=== PATIENT | female | born 1990 | race Caucasian/White ===

== ENCOUNTER 2020-04-27 01:32 | Emergency (ER) | payer MEDICAID, OTHER ==
[~2020-04-27] VITALS: Ht 157.5 cm; Wt 118.2 kg
[~2020-04-27 01:32] MED LIST: LITH600 PO; PARO10TA89 PO; TOPI200T PO; ZIPR80CA2 PO
[2020-04-27 02:31] LABS: COVID AG,FIA SOURCE NASAL SWAB
[2020-04-27 02:40] LABS: BASOPHILS % (AUTO) 0.3 % (0.0-2.0); EOSINOPHILS % (AUTO) 2.1 % (1.0-6.0); HEMATOCRIT 39.1 % (36-46); HEMOGLOBIN 12.1 g/dL (12.0-16.0); LYMPHOCYTES # (AUTO) 1.4 K/uL (1.0-4.8); LYMPHOCYTES % (AUTO) 11.2 % (22.0-44.0); MEAN CORPUSCULAR HEMOGLOBIN 24.5 pg (26.0-34.0); MEAN CORPUSCULAR VOLUME 79 fL (80-100); MONOCYTES # (AUTO) 0.3 K/uL (0.1-1.0); MONOCYTES % (AUTO) 2.8 % (2.0-9.0); NEUTROPHILS # (AUTO) 10.6 K/uL (1.8-7.7); NEUTROPHILS % (AUTO) 83.6 % (40.0-70.0); PLATELET COUNT (AUTO) 329 K/uL (150-450); RED BLOOD CELL COUNT(AUTO) 4.93 MIL/uL (4.00-5.20); RED CELL DISTRIBUTION WIDTH 25.4 % (11.5-14.5)
[2020-04-27 02:53] LABS: ANION GAP 6 mmol/L (8-16); CALCIUM, TOTAL 8.3 mg/dL (8.8-10.5); CARBON DIOXIDE 27 mmol/L (22-29); CHLORIDE 106 mmol/L (98-107); GLOMERULAR FILTR. RATE CALC > 60 mL/min (>60); GLUCOSE,RANDOM 116 mg/dL (70-110); POTASSIUM 3.7 mmol/L (3.5-5.1); SODIUM SERUM 139 mmol/L (136-145); UREA NITROGEN, BLOOD 11 mg/dL (7-18)
[2020-04-27 03:00] LABS: ALANINE AMINOTRANSFERASE 35 U/L (12-78); ALBUMIN 3.5 g/dL (3.4-5.0); ALKALINE PHOSPHATASE 102 U/L (46-116); ASPARTATE AMINOTRANSFERASE 25 U/L (15-37); BILIRUBIN,TOTAL 0.2 mg/dL (0.1-1.0); TOTAL PROTEIN, SERUM 7.2 g/dL (6.4-8.2)
[2020-04-27 03:05] LABS: INFLUENZA TYPE A NEGATIVE FOR TYPE A (NEGATIVE); INFLUENZA TYPE B NEGATIVE FOR TYPE B (NEGATIVE)
[2020-04-27] MEDS ORDERED: IBUPROFEN 600 MG TABLET PO ONE (03:15)
[2020-04-27 06:00] VITALS: BP 123/81
== END 2020-04-27 06:00 | disposition home or self-care (01) ==
LOC: EMS 01:34
DX: J40 Bronchitis, not specified as acute or chronic (principal); K21.9 Gastro-esophageal reflux disease without esophagitis; G40.909 Epilepsy, unspecified, not intractable, without status epilepticus; Z86.2 Personal history of diseases of the blood and blood-forming organs and certain disorders involving the immune mechanism; Z90.49 Acquired absence of other specified parts of digestive tract; Z79.899 Other long term (current) drug therapy; Z88.8 Allergy status to other drugs, medicaments and biological substances; Z20.828 Contact with and (suspected) exposure to other viral communicable diseases
CPT/HCPCS: 36415; 71045; 80053; 85025; 87426; 87804; 99285; U0003

== ENCOUNTER 2020-10-30 11:29 | Inpatient (IN) | payer MEDICAID, OTHER ==
[~2020-10-30] VITALS: Ht 157.5 cm; Wt 117.0 kg
[~2020-10-30 11:29] MED LIST changes: -LITH600 PO; +LITH600C5 PO
[2020-10-30 13:23] LABS: COVID AG,FIA SOURCE NASOPHARYNGEAL
[2020-10-30 14:07] LABS: BASOPHILS % (AUTO) 0.6 % (0.0-2.0); EOSINOPHILS % (AUTO) 0.6 % (1.0-6.0); HEMATOCRIT 41.8 % (36-46); HEMOGLOBIN 12.9 g/dL (12.0-16.0); LYMPHOCYTES # (AUTO) 2.3 K/uL (1.0-4.8); LYMPHOCYTES % (AUTO) 16.6 % (22.0-44.0); MEAN CORPUSCULAR HEMOGLOBIN 24.9 pg (26.0-34.0); MEAN CORPUSCULAR HGB CONC 30.9 G/dL (31.0-37.0); MEAN CORPUSCULAR VOLUME 80 fL (80-100); MONOCYTES # (AUTO) 0.4 K/uL (0.1-1.0); MONOCYTES % (AUTO) 3.1 % (2.0-9.0); NEUTROPHILS % (AUTO) 79.1 % (40.0-70.0); PLATELET COUNT (AUTO) 403 K/uL (150-450); RED BLOOD CELL COUNT(AUTO) 5.21 MIL/uL (4.00-5.20); RED CELL DISTRIBUTION WIDTH 17.7 % (11.5-14.5)
[2020-10-30 14:28] LABS: ALANINE AMINOTRANSFERASE 44 U/L (12-78); ALBUMIN 3.8 g/dL (3.4-5.0); ALKALINE PHOSPHATASE 132 U/L (46-116); ANION GAP 13 mmol/L (8-16); ASPARTATE AMINOTRANSFERASE 27 U/L (15-37); BILIRUBIN,TOTAL 0.2 mg/dL (0.1-1.0); CALCIUM, TOTAL 8.7 mg/dL (8.8-10.5); CARBON DIOXIDE 23 mmol/L (22-29); CHLORIDE 103 mmol/L (98-107); CREATININE 0.94 mg/dL (0.60-1.30); GLOMERULAR FILTR. RATE CALC > 60 mL/min (>60); GLUCOSE,RANDOM 88 mg/dL (70-110); HCG,QUANTITATIVE < 1 mIU/mL (0-6); SODIUM SERUM 139 mmol/L (136-145); TOTAL PROTEIN, SERUM 7.8 g/dL (6.4-8.2); UREA NITROGEN, BLOOD 15 mg/dL (7-18)
[2020-10-30] MEDS ORDERED: HALOPERIDOL 5 MG TABLET PO PRN (14:45)
[2020-10-30] MEDS ORDERED: POTASSIUM CHLORIDE 20 MEQ ER TABLET PO ONE (15:00)
[2020-10-30 15:20] LABS: AMPHET/METH SCREEN,URINE NEGATIVE (NEGATIVE); BARBITURATE SCREEN, URINE NEGATIVE (NEGATIVE); BENZODIAZEPINES SCREEN,URINE NEGATIVE (NEGATIVE); CANNABINOID SCREEN,URINE NEGATIVE (NEGATIVE); COCAINE SCREEN,URINE NEGATIVE (NEGATIVE); METHADONE SCREEN, URINE NEGATIVE (NEGATIVE); OPIATE SCREEN,URINE NEGATIVE (NEGATIVE)
[2020-10-30 15:34] LABS: PHENCYCLIDINE SCREEN,URINE NEGATIVE (NEGATIVE)
[2020-10-30] MEDS: ZOLPIDEM TARTRATE 10 MG TABLET PO PRN (20:16)
[2020-10-30 20:22] VITALS: BP 123/79
[2020-10-30 20:26] LABS: GLUCOMETER DEV NAME(LOC) BV3S.; GLUCOSE,POINT OF CARE 116 MG/DL (70-110)
[2020-10-31 00:30] VITALS: BP 118/71
[2020-10-31] MEDS ORDERED: PETROLATUM,WHITE 28 GM JELLY TP PRN (07:30)
[2020-10-31] MEDS ORDERED: ONDANSETRON HCL 4 MG TABLET PO PRN (07:30)
[2020-10-31] MEDS ORDERED: LOPERAMIDE HCL 2 MG CAPSULE PO PRN (07:30)
[2020-10-31] MEDS ORDERED: MAGNESIUM HYDROXIDE SUSPENSION 30 ML UDCUP PO PRN (07:30)
[2020-10-31] MEDS ORDERED: DOCUSATE SODIUM 100 MG CAPSULE PO PRN (07:30)
[2020-10-31] MEDS ORDERED: ALBUTEROL SULFATE HFA 90 MCG/PUFF 8 GM INHALER IH PRN (07:30)
[2020-10-31] MEDS ORDERED: GuaiFENesin/D-METHORPHAN [SUGAR-FREE] 200-20MG/10 ML SYRUP UDCUP PO PRN (07:30)
[2020-10-31] MEDS ORDERED: NICOTINE 14 MG/24 HOUR PATCH TD PRN (07:30)
[2020-10-31] MEDS ORDERED: ACETAMINOPHEN 325 MG TABLET PO PRN (07:30)
[2020-10-31] MEDS ORDERED: CloNIDine HCL 0.1 MG TABLET PO PRN (07:30)
[2020-10-31] MEDS ORDERED: IBUPROFEN 400 MG TABLET PO PRN (07:30)
[2020-10-31 08:06] VITALS: BP 112/74
[2020-10-31] MEDS: TOPIRAMATE 100 MG TABLET PO SCH ×2 (08:23→16:12)
[2020-10-31] MEDS: LORazepam 2 MG TABLET PO PRN ×2 (08:23→20:48)
[2020-10-31] MEDS: LITHIUM CARBONATE 600 MG CAPSULE PO SCH ×2 (10:13→16:12)
[2020-10-31] MEDS: PARoxetine HCL 10 MG TABLET PO SCH (10:20)
[2020-10-31] MEDS: ZIPRASIDONE HCL 60 MG CAPSULE PO SCH (16:12)
[2020-10-31 16:18] VITALS: BP 127/80
[2020-10-31] MEDS ORDERED: ZIPRASIDONE HCL 80 MG CAPSULE PO SCH (17:00)
[2020-10-31 21:04] LABS: GLUCOMETER DEV NAME(LOC) BV3S.; GLUCOSE,POINT OF CARE 108 MG/DL (70-110)
[2020-11-01 02:02] VITALS: BP 133/96
[2020-11-01] MEDS: ZIPRASIDONE HCL 60 MG CAPSULE PO SCH ×2 (06:51→16:57)
[2020-11-01] MEDS: LORazepam 2 MG TABLET PO PRN ×2 (08:20→16:03)
[2020-11-01] MEDS: TOPIRAMATE 100 MG TABLET PO SCH ×2 (08:20→16:57)
[2020-11-01] MEDS: LITHIUM CARBONATE 600 MG CAPSULE PO SCH ×2 (08:20→16:57)
[2020-11-01] MEDS: PARoxetine HCL 10 MG TABLET PO SCH (08:20)
[2020-11-01 08:33] VITALS: BP 126/81
[2020-11-01 16:29] VITALS: BP 100/65
[2020-11-01] MEDS: ZOLPIDEM TARTRATE 10 MG TABLET PO PRN (20:40)
[2020-11-01] MEDS: MAG HYDROX/AL HYDROX/SIMETH ES 30 ML SUSPENSION UDCUP PO PRN (22:00)
[2020-11-02] MEDS: LORazepam 2 MG TABLET PO PRN ×3 (00:36→14:08)
[2020-11-02 00:39] VITALS: BP 146/90
[2020-11-02] MEDS: ZIPRASIDONE HCL 60 MG CAPSULE PO SCH ×2 (06:23→16:14)
[2020-11-02 08:21] VITALS: BP 126/82
[2020-11-02] MEDS: PARoxetine HCL 10 MG TABLET PO SCH (08:51)
[2020-11-02] MEDS: LITHIUM CARBONATE 600 MG CAPSULE PO SCH ×2 (08:51→16:14)
[2020-11-02] MEDS: TOPIRAMATE 100 MG TABLET PO SCH ×2 (08:51→16:14)
[2020-11-02] MEDS ORDERED: POTASSIUM CHLORIDE 10 MEQ ER TABLET PO ONE (13:45)
[2020-11-02 16:11] VITALS: BP 131/83
[2020-11-02] MEDS: MAG HYDROX/AL HYDROX/SIMETH ES 30 ML SUSPENSION UDCUP PO PRN (18:28)
[2020-11-03 00:30] VITALS: BP 136/75
[2020-11-03] MEDS: ZOLPIDEM TARTRATE 10 MG TABLET PO PRN (00:37)
[2020-11-03] MEDS: MAG HYDROX/AL HYDROX/SIMETH ES 30 ML SUSPENSION UDCUP PO PRN ×2 (00:38→13:58)
[2020-11-03] MEDS: LORazepam 2 MG TABLET PO PRN ×2 (00:38→08:05)
[2020-11-03] MEDS: ZIPRASIDONE HCL 60 MG CAPSULE PO SCH (06:29)
[2020-11-03] MEDS: LITHIUM CARBONATE 600 MG CAPSULE PO SCH (08:05)
[2020-11-03] MEDS: TOPIRAMATE 100 MG TABLET PO SCH (08:05)
[2020-11-03] MEDS: PARoxetine HCL 10 MG TABLET PO SCH (08:05)
[2020-11-03 08:17] VITALS: BP 140/83
[2020-11-03] MEDS ORDERED: TOPI100T37 PO (10:05)
[2020-11-03] MEDS ORDERED: LITH600C5 PO (10:05)
[2020-11-03] MEDS ORDERED: ZIPR60CA2 PO (10:06)
[2020-11-03] MEDS ORDERED: PARO10TA89 PO (10:06)
[2020-11-03 16:28] VITALS: BP 124/63
[2020-11-04 08:12] LABS: APPEARANCE,URINE CLEAR (CLEAR); BILIRUBIN,URINE NEGATIVE (NEGATIVE); GLUCOSE, URINE (UA) NEGATIVE (NEGATIVE); KETONES,URINE NEGATIVE (NEGATIVE); LEUKOCYTE ESTERASE ,URINE NEGATIVE (NEGATIVE); NITRATE,URINE NEGATIVE (NEGATIVE); OCCULT BLOOD,URINE TRACE (NEGATIVE); PROTEIN,URINE NEGATIVE (NEGATIVE); UROBILINOGEN,URINE 0.2 mg/dL (<=1.0)
[2020-11-04 08:32] LABS: BACTERIA,URINE None Seen /HPF (None Seen); RBC,URINE None Seen /HPF (0-2); SQUAMOUS EPITHELIAL CELL,UR Few /LPF (None Seen); WBC,URINE None Seen /HPF (0-5)
== END 2020-11-03 16:59 | disposition home or self-care (01) | DRG 750 ==
LOC: EMS 11:29 → B3A 17:58
DX: F25.0 Schizoaffective disorder, bipolar type (principal); R45.850 Homicidal ideations; Z91.5 Personal history of self-harm; G40.909 Epilepsy, unspecified, not intractable, without status epilepticus; K21.9 Gastro-esophageal reflux disease without esophagitis; Z88.8 Allergy status to other drugs, medicaments and biological substances; D64.9 Anemia, unspecified; F90.9 Attention-deficit hyperactivity disorder, unspecified type; Z90.49 Acquired absence of other specified parts of digestive tract; D72.829 Elevated white blood cell count, unspecified; E87.6 Hypokalemia; K29.70 Gastritis, unspecified, without bleeding; E78.5 Hyperlipidemia, unspecified; Z59.0 Homelessness; Z79.899 Other long term (current) drug therapy; Z20.822 Contact with and (suspected) exposure to COVID-19
CPT/HCPCS: 80053; 80061; 81001; 82962; 84132; 84702; 85025; 87426; 99285; G0480

== ENCOUNTER 2020-12-09 00:31 | Emergency (ER) | payer MEDICAID, OTHER ==
[~2020-12-09] VITALS: Ht 157.5 cm; Wt 121.0 kg
[~2020-12-09 00:31] MED LIST changes: +TOPI100T37 PO; -TOPI200T PO; +ZIPR60CA2 PO; -ZIPR80CA2 PO
[2020-12-09] MEDS ORDERED: FAMOTIDINE 10 MG/ML 2 ML VIAL IVP ONE (01:15)
[2020-12-09] MEDS ORDERED: ACETAMINOPHEN 500 MG TABLET PO ONE (01:15)
[2020-12-09] MEDS ORDERED: SODIUM CHLORIDE 0.9% 1,000 ML IV ONE (01:15)
[2020-12-09] MEDS ORDERED: PB/HYOSCY/ATR/SCOP/LIDO/MAALOX 55 ML BOTTLE PO ONE (01:15)
[2020-12-09] MEDS ORDERED: KETOROLAC TROMETHAMINE 30 MG/ML VIAL IVP ONE (01:15)
[2020-12-09 02:01] LABS: BASOPHILS % (AUTO) 0.4 % (0.0-2.0); EOSINOPHILS % (AUTO) 2.9 % (1.0-6.0); HEMATOCRIT 36.4 % (36-46); HEMOGLOBIN 11.6 g/dL (12.0-16.0); LYMPHOCYTES % (AUTO) 26.7 % (22.0-44.0); MEAN CORPUSCULAR HEMOGLOBIN 25.1 pg (26.0-34.0); MEAN CORPUSCULAR HGB CONC 31.9 G/dL (31.0-37.0); MEAN CORPUSCULAR VOLUME 79 fL (80-100); MONOCYTES # (AUTO) 0.5 K/uL (0.1-1.0); MONOCYTES % (AUTO) 4.7 % (2.0-9.0); NEUTROPHILS # (AUTO) 7.4 K/uL (1.8-7.7); NEUTROPHILS % (AUTO) 65.3 % (40.0-70.0); PLATELET COUNT (AUTO) 417 K/uL (150-450); RED BLOOD CELL COUNT(AUTO) 4.63 MIL/uL (4.00-5.20); RED CELL DISTRIBUTION WIDTH 17.5 % (11.5-14.5)
[2020-12-09 02:15] LABS: ANION GAP 9 mmol/L (8-16); CALCIUM, TOTAL 9.2 mg/dL (8.8-10.5); CARBON DIOXIDE 27 mmol/L (22-29); CHLORIDE 104 mmol/L (98-107); CREATININE 0.83 mg/dL (0.60-1.30); GLOMERULAR FILTR. RATE CALC > 60 mL/min (>60); GLUCOSE,RANDOM 102 mg/dL (70-110); POTASSIUM 3.5 mmol/L (3.5-5.1); SODIUM SERUM 140 mmol/L (136-145); UREA NITROGEN, BLOOD 11 mg/dL (7-18)
[2020-12-09 02:21] LABS: ALANINE AMINOTRANSFERASE 30 U/L (12-78); ALBUMIN 3.4 g/dL (3.4-5.0); ALKALINE PHOSPHATASE 116 U/L (46-116); ASPARTATE AMINOTRANSFERASE 20 U/L (15-37); BILIRUBIN,TOTAL 0.2 mg/dL (0.1-1.0); LIPASE 165 U/L (73-393)
[2020-12-09 02:45] LABS: COVID AG,FIA SOURCE NASOPHARYNGEAL
[2020-12-09 03:23] LABS: APPEARANCE,URINE CLEAR (CLEAR); BILIRUBIN,URINE NEGATIVE (NEGATIVE); GLUCOSE, URINE (UA) NEGATIVE (NEGATIVE); KETONES,URINE NEGATIVE (NEGATIVE); LEUKOCYTE ESTERASE ,URINE NEGATIVE (NEGATIVE); NITRATE,URINE NEGATIVE (NEGATIVE); OCCULT BLOOD,URINE NEGATIVE (NEGATIVE); PH,URINE 6.5 (5.0-8.0); PROTEIN,URINE NEGATIVE (NEGATIVE); UROBILINOGEN,URINE 0.2 mg/dL (<=1.0)
[2020-12-09 03:36] LABS: BACTERIA,URINE Rare /HPF (None Seen); RBC,URINE None Seen /HPF (0-2); SQUAMOUS EPITHELIAL CELL,UR Few /LPF (None Seen); WBC,URINE 0-2 /HPF (0-5)
[2020-12-09 03:40] VITALS: BP 123/75
== END 2020-12-09 04:00 | disposition home or self-care (01) ==
LOC: EMS 00:32
DX: R11.2 Nausea with vomiting, unspecified (principal); R10.31 Right lower quadrant pain; R07.2 Precordial pain; F31.9 Bipolar disorder, unspecified; K21.9 Gastro-esophageal reflux disease without esophagitis; F20.9 Schizophrenia, unspecified; Z20.822 Contact with and (suspected) exposure to COVID-19; Z90.89 Acquired absence of other organs; Z88.8 Allergy status to other drugs, medicaments and biological substances
CPT/HCPCS: 36415; 80053; 81001; 83690; 85025; 87426; 93005; 96361; 96374; 96375; 99284; J1885; J3490; J7030